=== PATIENT | female | born 1995 | race Caucasian/White ===

== ENCOUNTER 2017-05-28 21:31 | Emergency (ER) | payer OTHER ==
[2017-05-28] MEDS ORDERED: SODIUM CHLORIDE 0.9% 1,000 ML IV STA (22:09)
--- NOTE | 2017-05-28 22:31 | ED ---
Abdominal Pain HPI - General Chief Complaint: Abdominal Pain Stated Complaint: LLQ and Back pain Time Seen by Provider: 05/28/17 22:03 Source: patient Mode of arrival: ambulatory Limitations: no limitations - History of Present Illness Initial Comments: 22-year-old male patient presents to emergency department today with complaints of left upper quadrant abdominal pain that radiates around to her back. Patient states that the pain is dull and achy is there constantly, however she states that she does have episodes of more severe sharp crampy pain. Patient states that this is been going on for the last 2 days. Patient states that she does urinate frequently however this is not unusual for her. Patient states that she has had some nausea without any vomiting. Patient states that she has had chills throughout the day however denies any fever. Patient denies any cough , congestion, shortness breath, chest pain, vomiting, diarrhea, constipation, numbness, tingling, weakness, hematuria, headache, visual changes, denies any vaginal bleeding, abnormal vaginal discharge, burning, itching or any other complaints. Patient does have history of kidney infection and kidney stones however states this feels little bit different. Patient has nexplanon arm implant for control denies any chance of . - Related Data Previous Rx's Medication Instructions Recorded Tamsulosin HCl [Flomax] 0.4 mg PO DAILY #7 cap 05/28/17 Allergies Allergy/AdvReac Type Severity Reaction Status Date / Time No Known Allergies Allergy Verified 05/28/17 21:41 Review of Systems ROS Statement: Those systems with pertinent positive or pertinent negative responses have been documented in the HPI. ROS Other: All systems not noted in ROS Statement are negative. Past Medical History Past Medical History: Hypertension Additional Past Medical History / Comment(s): pih History of Any Multi-Drug Resistant Organisms: None Reported Past Surgical History: No Surgical Hx Reported Additional Past Surgical History / Comment(s): wisdom teeth Past Anesthesia/Blood Transfusion Reactions: No Reported Reaction Past Psychological History: Anxiety Smoking Status: Current every day smoker Past Alcohol Use History: None Reported Past Drug Use History: Marijuana - Past Family History Mother Family Medical History: No Reported History Father Family Medical History: COPD, Hypertension General Exam Limitations: no limitations General appearance: alert, in no apparent distress Eye exam: Present: normal appearance, PERRL, EOMI. Absent: scleral icterus, conjunctival injection, periorbital swelling ENT exam: Present: normal exam, normal oropharynx, mucous membranes moist Neck exam: Present: normal inspection. Absent: tenderness, meningismus, lymphadenopathy Respiratory exam: Present: normal lung sounds bilaterally. Absent: respiratory distress, wheezes, rales, rhonchi, stridor Cardiovascular Exam: Present: regular rate, normal rhythm, normal heart sounds. Absent: systolic murmur, diastolic murmur, rubs, gallop, clicks GI/Abdominal exam: Present: soft, tenderness (Left upper quadrant tenderness), normal bowel sounds. Absent: distended, guarding, rebound, rigid Extremities exam: Present: normal inspection, full ROM, normal capillary refill. Absent: tenderness, pedal edema, joint swelling, calf tenderness Back exam: Present: normal inspection, CVA tenderness (L). Absent: CVA tenderness (R) Neurological exam: Present: alert, oriented X3, CN II-XII intact Psychiatric exam: Present: normal affect, normal mood Skin exam: Present: warm, dry, intact, normal color. Absent: rash Course Vital Signs 05/28/17 21:39 Temperature 98.5 F Pulse Rate 86 Respiratory 18 Rate Blood Pressure 163/90 O2 Sat by Pulse 100 Oximetry Medical Decision Making - Medical Decision Making 22-year-old female patient presents to emergency department today for evaluation of left upper quadrant pain that radiates to her back. Lab work was reviewed was unremarkable. KUB was reviewed and showed overall nonobstructive bowel gas pattern and no acute intra-abdominal process. Did offer to perform computed tomography scan to rule out kidney stone as patient has had these in the past. Patient states that she was mostly concerned about infection and refuses CT scan at this time. Patient be discharged with a prescription for Flomax. She is instructed to follow-up with her primary care physician for recheck in 1-2 days. Instructed to return here immediately for any new, worsening, or concerning symptoms. Patient verbalizes understanding and agrees with this plan. - Lab Data Result diagrams: 05/28/17 22:23 05/28/17 22:23 Lab Results 05/28/17 05/28/17 05/28/17 Range/Units 22:23 22:23 22: WBC 10.8 H (3.8-10.6) k/uL RBC 4.94 (3.80-5.40) m/uL Hgb 15.8 (11.4-16.0) gm/dL Hct 47.1 H (34.0-46.0) % MCV 95.3 (80.0-100.0) fL MCH 32.0 (25.0-35.0) pg MCHC 33.6 (31.0-37.0) g/dL RDW 13.9 (11.5-15.5) % Plt Count 287 (150-450) k/uL Neutrophils % 74 % Lymphocytes % 20 % Monocytes % 4 % Eosinophils % 1 % Basophils % 1 % Neutrophils # 7.9 H (1.3-7.7) k/uL Lymphocytes # 2.2 (1.0-4.8) k/uL Monocytes # 0.4 (0-1.0) k/uL Eosinophils # 0.1 (0-0.7) k/uL Basophils # 0.1 (0-0.2) k/uL Sodium 139 (137-145) mmol/L Potassium 4.2 (3.5-5.1) mmol/L Chloride 106 (98-107) mmol/L Carbon Dioxide 24 (22-30) mmol/L Anion Gap 9 mmol/L BUN 9 (7-17) mg/dL Creatinine 0.80 (0.52-1.04) mg/dL Est GFR (MDRD) Af Amer >60 (>60 ml/min/1.73 sqM) Est GFR (MDRD) Non-Af >60 (>60 ml/min/1.73 sqM) Glucose 89 (74-99) mg/dL Calcium 10.0 (8.4-10.2) mg/dL Total Bilirubin 0.5 (0.2-1.3) mg/dL AST 19 (14-36) U/L ALT 41 (9-52) U/L Alkaline Phosphatase 56 (38-126) U/L Total Protein 7.7 (6.3-8.2) g/dL Albumin 5.0 (3.5-5.0) g/dL Amylase 48 (30-110) U/L Lipase 39 (23-300) U/L Urine Color Yellow Urine Appearance Cloudy H (Clear) Urine pH 7.0 (5.0-8.0) Ur Specific [place] 1.015 (1.001-1.035) Urine Protein Negative (Negative) Urine Glucose (UA) Negative (Negative) Urine Ketones Negative (Negative) Urine Blood Negative (Negative) Urine Nitrite Negative (Negative) Urine Bilirubin Negative (Negative) Urine Urobilinogen <2.0 (<2.0) mg/dL Ur Leukocyte Esterase Moderate H (Negative) Urine RBC 1 (0-5) /hpf Urine WBC 4 (0-5) /hpf Ur Squamous Epith Cells 7 H (0-4) /hpf Urine Bacteria Rare H (None) /hpf Urine Mucus Rare H (None) /hpf - Radiology Data Radiology results: report reviewed, image reviewed KUB reveals no evidence of bowel obstruction or pneumoperitoneum. No abnormal calcifications in the abdomen or pelvis. I'll gas pattern is unremarkable. No dilation. No radiopaque renal calculi. Unremarkable bones and joints. Impression by Dr. Joshi shows no radiographic evidence of acute abdominal disease or bowel obstruction. Disposition Clinical Impression: Left flank pain Disposition: HOME SELF-CARE Condition: Good Instructions: Flank Pain (ED) Additional Instructions: Increase fluids. Take medications as directed. Follow-up with primary care physician for recheck in 1-2 days. Return immediately for any new, worsening, or concerning symptoms. Prescriptions: Tamsulosin HCl [Flomax] 0.4 mg PO DAILY #7 cap Referrals: Yesy Sinha MD [Primary Care Provider] - 1-2 days Time of Disposition: 23:19
[2017-05-28 22:35] LABS: Basophils # (A) 0.1 k/uL (0-0.2); Basophils % (A) 1 %; CH 33.3; Eosinophils # (A) 0.1 k/uL (0-0.7); Eosinophils % (A) 1 %; HCT 47.1 % (34.0-46.0); HDW 2.24; HGB 15.8 gm/dL (11.4-16.0); Luc # (Auto) 0.12; Luc % (Auto) 1; Lymphocytes # (A) 2.2 k/uL (1.0-4.8); Lymphocytes % (A) 20 %; MCHC 33.6 g/dL (31.0-37.0); MCV 95.3 fL (80.0-100.0); Mean Platelet Volume 7.2; Monocytes # (A) 0.4 k/uL (0-1.0); Monocytes % (A) 4 %; Neutrophils # (A) 7.9 k/uL (1.3-7.7); Neutrophils % (A) 74 %; RBC 4.94 m/uL (3.80-5.40); RDW 13.9 % (11.5-15.5); WBC 10.8 k/uL (3.8-10.6); WBC (Perox) 10.49
[2017-05-28 22:47] LABS: ALT 41 U/L (9-52); AST 19 U/L (14-36); Alkaline Phosphatase 56 U/L (38-126); Amylase 48 U/L (30-110); Anion Gap 9 mmol/L; Appearance,Urine Cloudy (Clear); Bacteria,Urine Rare /hpf; Bilirubin,Urine Negative (Negative); Blood Urea Nitrogen 9 mg/dL (7-17); Carbon Dioxide 24 mmol/L (22-30); Chloride 106 mmol/L (98-107); Glucose 89 mg/dL (74-99); Glucose,Urine (UA) Negative (Negative); Ketones,Urine Negative (Negative); Leukocyte Esterase,Urine Moderate (Negative); Mucus,Urine Rare /hpf; Nitrite,Urine Negative (Negative); Non-African American GFR(MDRD) >60 (>60 ml/min/1.73 sqM); Particle Count 6365; Potassium 4.2 mmol/L (3.5-5.1); Protein,Urine Negative (Negative); RBC,Urine 1 /hpf (0-5); Sodium 139 mmol/L (137-145); Specific Gravity,Urine 1.015 (1.001-1.035); Squamous Epithelial Cell,Urine 7 /hpf (0-4); Total Bilirubin 0.5 mg/dL (0.2-1.3); Total Protein 7.7 g/dL (6.3-8.2); UA Billing (MACRO vs. MICRO) MICRO; Urobilinogen,Urine <2.0 mg/dL (<2.0); WBC,Urine 4 /hpf (0-5)
--- NOTE | 2017-05-28 23:14 | XR ---
EXAM: XR Abdomen, 1 View CLINICAL HISTORY: Reason: abdominal pain TECHNIQUE: Frontal upright view of the abdomen/pelvis. COMPARISON: 02/07/2015 FINDINGS: Intraperitoneal space: No evidence of bowel obstruction or pneumoperitoneum. No abnormal calcifications in the abdomen or pelvis. Gastrointestinal tract: Bowel gas pattern is unremarkable. No dilation. Organs: No radiopaque renal calculi. Bones/joints: Unremarkable. IMPRESSION: No radiographic evidence of acute abdominal disease or bowel obstruction.
[2017-05-28 23:30] VITALS: BP 157/92; PULSE 80; RESP 16; TEMP 98
== END 2017-05-28 23:29 | disposition home or self-care (01) ==
LOC: EC 21:31
DX: R10.12 Left upper quadrant pain (principal); M54.9 Dorsalgia, unspecified; R11.0 Nausea; R68.83 Chills (without fever); R35.0 Frequency of micturition; F17.200 Nicotine dependence, unspecified, uncomplicated; Z79.3 Long term (current) use of hormonal contraceptives
CPT/HCPCS: 36415; 74000; 80053; 81001; 82150; 83690; 85025; 96360; 99284

== ENCOUNTER → 2018-09-22 | Outpatient (CLI) | payer OTHER ==
--- NOTE | 2018-09-22 11:27 | US ---
EXAMINATION TYPE: US kidneys/renal and bladder DATE OF EXAM: 09/22/2018 COMPARISON: NONE CLINICAL HISTORY: R31.9 HEMATURIA,R10.9 FLANK PAIN. EXAM MEASUREMENTS: Right Kidney: 12.0 x 4.0 x 5.1 cm Left Kidney: 11.7 x 5.4 x 5.1 cm Right Kidney: wnl Left Kidney: wnl Bladder: wnl Bilateral Jets seen: Yes There is no evidence for hydronephrosis at this point in time. No nephrolithiasis is seen. No james s are identified. The urinary bladder is anechoic. Bilateral ureteral jets are seen. IMPRESSION: No hydronephrosis or nephrolithiasis. Kidneys are unremarkable sonographically. No urinary bladder ca lculi are seen.
== END ==
LOC: RADUSWWP 10:24
PROVIDERS: ATTEND Internal Medicine
DX: R31.9 Hematuria, unspecified (principal)
CPT/HCPCS: 76770

== ENCOUNTER 2018-10-21 12:20 | Emergency (ER) | payer OTHER ==
[2018-10-21 12:42] VITALS: BP 120/70; PULSE 68; RESP 18; TEMP 98.5
--- NOTE | 2018-10-21 12:57 | ED ---
Headache HPI - General Chief Complaint: Headache Stated Complaint: migraine Time Seen by Provider: 10/21/18 12:48 Source: patient, RN notes reviewed Mode of arrival: ambulatory Limitations: no limitations - History of Present Illness Initial Comments: 22-year-old female presents emergency Department chief complaint migraine for 5 days. Patient states she is on medications at home for migraines states that alleviate some of her symptoms but does not completely salt issue. Patient states that she's been discussed the past about having imaging because of her ongoing headaches and has not. Patient states this is a slight different than her normal headaches. Patient reports no fever, chills, neck stiffness or neck pain. Patient has no focal weakness patient does admit to some nausea and vomiting. She has some light sensitivity but no blurred vision patient denies chest pain, shortness breath, trauma. - Related Data Previous Rx's Medication Instructions Recorded Tamsulosin HCl [Flomax] 0.4 mg PO DAILY #7 cap 05/28/17 Amoxicillin/Potassium Clav 1 tab PO Q12HR #20 tab 10/21/18 [Augmentin 875-125 Tablet] Allergies Allergy/AdvReac Type Severity Reaction Status Date / Time No Known Allergies Allergy Verified 05/28/17 21:41 Review of Systems ROS Statement: Those systems with pertinent positive or pertinent negative responses have been documented in the HPI. ROS Other: All systems not noted in ROS Statement are negative. Past Medical History Past Medical History: Hypertension Additional Past Medical History / Comment(s): pih History of Any Multi-Drug Resistant Organisms: None Reported Past Surgical History: No Surgical Hx Reported Additional Past Surgical History / Comment(s): wisdom teeth Past Anesthesia/Blood Transfusion Reactions: No Reported Reaction Past Psychological History: Anxiety Smoking Status: Current every day smoker Past Alcohol Use History: None Reported Past Drug Use History: Marijuana - Past Family History Mother Family Medical History: No Reported History Father Family Medical History: COPD, Hypertension General Exam Limitations: no limitations General appearance: alert, in no apparent distress Head exam: Present: atraumatic, normocephalic, normal inspection Eye exam: Present: normal appearance, PERRL, EOMI. Absent: scleral icterus, conjunctival injection, periorbital swelling ENT exam: Present: normal exam, normal oropharynx, mucous membranes moist, TM's normal bilaterally, normal external ear exam Neck exam: Present: normal inspection, full ROM. Absent: tenderness, meningismus, lymphadenopathy Respiratory exam: Present: normal lung sounds bilaterally. Absent: respiratory distress, wheezes, rales, rhonchi, stridor, decreased breath sounds Cardiovascular Exam: Present: regular rate, normal rhythm, normal heart sounds. Absent: systolic murmur, diastolic murmur, rubs, gallop, clicks Extremities exam: Present: normal inspection, full ROM, normal capillary refill. Absent: tenderness, pedal edema, joint swelling, calf tenderness Neurological exam: Present: reflexes normal. Absent: motor sensory deficit Expanded Patient oriented to: Present: person, place, time Speech: Present: fluid speech Cranial nerves: EOM's Intact: Normal Cerebellar function: Finger to Nose: Normal, Heel to Treadwell: Normal, Romberg: Normal Motor strength exam: RUE: 5, LUE: 5, RLE: 5, LLE: 5 Eye Response: (4) open spontaneously Motor Response: (6) obeys commands Verbal Response: (5) oriented [place] Total: 15 Skin exam: Present: warm, dry, intact, normal color. Absent: rash Course Vital Signs 10/21/18 12:39 Temperature 98.5 F Pulse Rate 68 Respiratory 18 Rate Blood Pressure 120/70 O2 Sat by Pulse 100 Oximetry Medical Decision Making - Medical Decision Making 23-year-old female presents from for right-sided headache. Patient had minimal relief with medications for migraine headache and she's had in the past states that she does not want anymore medications. Patient did request having CT as she's had no prior imaging and has had this discussion the past. CT is obtained showing acute right-sided maxillary sinusitis. Patient we treated with Augmentin return parameters were discussed. Disposition Clinical Impression: Migraine, Acute sinusitis Disposition: HOME SELF-CARE Condition: Stable Instructions: Acute Headache (ED) Additional Instructions: Please return to the Emergency Department if symptoms worsen or any other concerns. Prescriptions: Amoxicillin/Potassium Clav [Augmentin 875-125 Tablet] 1 tab PO Q12HR #20 tab Is patient prescribed a controlled substance at d/c from ED?: No Referrals: Yesy Sinha MD [Primary Care Provider] - 1-2 days Time of Disposition: 13:20
--- NOTE | 2018-10-21 13:17 | CT ---
EXAMINATION TYPE: CT brain wo con DATE OF EXAM: 10/21/2018 COMPARISON: CT brain 04/18/2015 HISTORY: Migraine past [address] DLP: 1005.4 mGycm. Automated Exposure Control for Dose Reduction was Utilized. TECHNIQUE: CT scan of the head is performed without contrast. FINDINGS: There is no acute intracranial hemorrhage, mass effect, or midline shift identified. The ventricles and sulci are within normal limits in size. The globes are intact and the visualized sin uses are remarkable for air-fluid level within the right maxillary sinus, inflammatory change in the ethmoid air cells, frontal sinus. IMPRESSION: No acute intracranial hemorrhage, mass effect, or midline shift is seen. Sinus disease, correlate for acute right maxillary sinusitis
== END 2018-10-21 13:25 | disposition home or self-care (01) ==
LOC: EC 12:20
DX: G43.909 Migraine, unspecified, not intractable, without status migrainosus (principal); J01.00 Acute maxillary sinusitis, unspecified; F17.200 Nicotine dependence, unspecified, uncomplicated
CPT/HCPCS: 70450; 99283

== ENCOUNTER → 2020-10-24 | Outpatient (CLI) | payer OTHER ==
--- NOTE | 2020-10-24 14:24 | XR ---
EXAMINATION TYPE: XR KUB DATE OF EXAM: 10/24/2020 COMPARISON: 05/28/2017 INDICATION: History of kidney stones right flank pain TECHNIQUE: Single view abdomen frontal projection FINDINGS: There is a normal bowel gas pattern. Psoas margins are normal. No organomegaly is present. No suspicious calcifications are identified. A new phlebolith type calcifications at the inferior lef t pelvis IMPRESSION: 1. Unremarkable Abdomen
== END | disposition home or self-care (01) ==
LOC: RADXRMAIN 10:14
PROVIDERS: ATTEND Internal Medicine
DX: R10.9 Unspecified abdominal pain (principal)
CPT/HCPCS: 74018

== ENCOUNTER 2021-04-30 18:59 | Emergency (ER) | payer OTHER ==
[2021-04-30 19:04] VITALS: BP 138/82; PULSE 96; RESP 18; TEMP 98.3
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
--- NOTE | 2021-04-30 19:42 | XR ---
EXAMINATION TYPE: XR ribs LT w pa chest xray DATE OF EXAM: 04/30/2021 COMPARISON: 12/12/2014 HISTORY: Rib pain TECHNIQUE: 5 views FINDINGS: Heart and mediastinum are normal. The lungs are clear of infiltrate. There is no pleural ef fusion or pneumothorax. I see no rib fracture. There is intact soft tissues. IMPRESSION: Normal chest. Normal left ribs. No change.
== END 2021-04-30 20:05 | disposition home or self-care (01) ==
LOC: EC 18:59
DX: R07.81 Pleurodynia (principal); F17.200 Nicotine dependence, unspecified, uncomplicated; I10 Essential (primary) hypertension; W16.42XA Fall into unspecified water causing other injury, initial encounter; Y93.16 Activity, rowing, canoeing, kayaking, rafting and tubing
CPT/HCPCS: 99283

== ENCOUNTER → 2021-08-29 | Outpatient (CLI) | payer OTHER ==
[2021-08-29 14:33] LABS: Basophils # (A) 0.05 X 10*3/uL (0.00-0.10); Basophils % (A) 0.4 %; Eosinophils # (A) 0.07 X 10*3/uL (0.04-0.35); Eosinophils % (A) 0.5 %; HCT 42.8 % (37.2-46.3); HGB 14.4 g/dL (12.0-15.0); Lymphocytes # (A) 3.22 X 10*3/uL (0.90-5.00); Lymphocytes % (A) 23.6 %; MCH 31.5 pg (27.0-32.0); MCHC 33.6 g/dL (32.0-37.0); MCV 93.7 fL (80.0-97.0); Mean Platelet Volume 9.2 fL (9.5-12.2); Monocytes # (A) 0.61 X 10*3/uL (0.20-1.00); Monocytes % (A) 4.5 %; Neutrophils # (A) 9.65 X 10*3/uL (1.80-7.70); Neutrophils % (A) 70.6 %; Platelet Count 355 X 10*3/uL (140-440); RBC 4.57 X 10*6/uL (4.10-5.20); RDW 13.2 % (11.5-14.5); WBC 13.65 X 10*3/uL (4.50-10.00)
[2021-08-29 14:55] LABS: African American GFR (CKD) 102.3 (60.0-200.0); Albumin 5.1 g/dL (3.8-4.9); Albumin/Globulin Ratio 1.82 (1.60-3.17); Anion Gap 14.9 mmol/L (10.00-18.00); BUN/Creat Ratio 13.33 Ratio (12.00-20.00); Calcium 10.1 mg/dL (8.7-10.3); Carbon Dioxide 22.1 mmol/L (20.0-27.5); Globulin 2.8 g/dL (1.6-3.3); Non-African American GFR(CKD) 88.2 (60.0-200.0); Potassium 3.9 mmol/L (3.5-5.5); Total Bilirubin 0.4 mg/dL (0.30-1.20); Total Protein 7.9 g/dL (6.2-8.2)
[2021-08-29 14:56] LABS: T4, Free (Free Thyroxine) 1.31 ng/dL (0.800-1.800)
[2021-08-31 13:49] LABS: Hepatitis A Antibody IgM Nonreactive (Nonreactive); Hepatitis B Core IgM Nonreactive (Nonreactive); Hepatitis B Surface Antigen Nonreactive (Nonreactive); Hepatitis C IgG Antibody Nonreactive (Nonreactive)
== END | disposition home or self-care (01) ==
LOC: LABWHC1 08:54
PROVIDERS: ATTEND Physician Assistant
DX: I10 Essential (primary) hypertension (principal); R55 Syncope and collapse
CPT/HCPCS: 36415; 80053; 80074; 84439; 84443; 84481; 85025

== ENCOUNTER → 2021-08-29 | Outpatient (CLI) | payer OTHER ==
--- NOTE | 2021-08-30 10:35 | ECHOF ---
Referral Reason:I10 hypertention MEASUREMENTS -------- HEIGHT: 165.1 cm WEIGHT: 72.6 kg BP: RVIDd: 2.8 cm (< 3.3) IVSd: 1.1 cm (0.6 - 1.1) LVIDd: 4.1 cm (3.9 - 5.3) LVPWd: 1.2 cm (0.6 - 1.1) IVSs: 1.5 cm LVIDs: 2.5 cm LVPWs: 1.6 cm LAESV Index (A-L): 29.24 ml/m Ao Diam: 2.7 cm (2.0 - 3.7) AV Cusp: 2.1 cm (1.5 - 2.6) LA Diam: 4.1 cm (2.7 - 3.8) MV EXCURSION: 20.180 mm (> 18.000) MV EF SLOPE: 108 mm/s (70 - 150) EPSS: 0.4 cm MV E Kevon: 0.82 m/s MV DecT: 173 ms MV A Kevon: 0.51 m/s MV E/A Ratio: 1.61 RAP: 5.00 mmHg RVSP: 31.73 mmHg FINDINGS -------- Sinus rhythm. This was a technically adequate study. The left ventricular size is normal. There is borderline concentric left ventricular hypertrophy. Overall left ventricular systolic function is normal with, an EF between 55 - 60 %. The diastolic filling pattern is normal for the age of the patient 6.89. The right ventricle is normal in size. LA is midly dilated 29-33ml/m2. The right atrial size is normal. Interatrial and interventricular septum intact. The aortic valve is trileaflet and appears structurally normal. There is no evidence of aortic regu rgitation. There is no evidence of aortic stenosis. No mitral regurgitation. Mild tricuspid regurgitation present. There is no evidence of pulmonary hypertension. The right v entricular systolic pressure, as measured by Doppler, is 31.73mmHg. There is no pulmonic regurgitation present. The aortic root size is normal. Normal inferior vena cava with normal inspiratory collapse consistent with estimated right atrial pre ssure of 5 mmHg. There is no pericardial effusion. CONCLUSIONS -------- 1. The left ventricular size is normal. 2. There is borderline concentric left ventricular hypertrophy. 3. Overall left ventricular systolic function is normal with, an EF between 55 - 60 %. 4. The diastolic filling pattern is normal for the age of the patient 6.89 5. LA is midly dilated 29-33ml/m2. 6. Mild tricuspid regurgitation present. PAIN MANAGEMENT SPECIALIST: Ashley Ahmadi RDCS
== END | disposition home or self-care (01) ==
LOC: RADECHMAIN 14:03
PROVIDERS: ATTEND Internal Medicine
DX: I07.1 Rheumatic tricuspid insufficiency (principal)
CPT/HCPCS: 93306

== ENCOUNTER → 2022-10-24 | Outpatient (CLI) | payer OTHER ==
--- NOTE | 2022-10-24 10:38 | US ---
EXAMINATION TYPE: US kidneys/renal and bladder DATE OF EXAM: 10/24/2022 COMPARISON: CLINICAL HISTORY: R30.0 Z82.71. Patient states she has a family history of PCKD. Patient states she has a history of kidney infections and stones. EXAM MEASUREMENTS: Right Kidney: 11.1 x 4.8 x 4.2 cm Left Kidney: 11.3 x 4.6 x 4.4 cm Right Kidney: Medial anechoic lesion at hilum - 1.9 x 1.0 cm, may be an extrarenal pelvis, present pr eviously. Left Kidney: No hydronephrosis or masses seen Bladder: distended, anechoic Bilateral Jets seen IMPRESSION: 1. No suspicious renal abnormality.
== END | disposition home or self-care (01) ==
LOC: RADUSWWP 10:06
PROVIDERS: ATTEND Family Medicine
DX: R30.0 Dysuria (principal); Z82.71 Family history of polycystic kidney
CPT/HCPCS: 76770

== ENCOUNTER → 2024-03-19 | Outpatient (CLI) | payer OTHER ==
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
--- NOTE | 2024-03-21 17:59 | US ---
EXAMINATION TYPE: US thyroid st tissue head/neck DATE OF EXAM: 03/19/2024 COMPARISON: NONE CLINICAL INDICATION: Female, 29 years old with history of R22.1 MASS LUMP SWELL; Thyroid and palpable neck at anterior midline neck superior to thyroid. GLAND SIZE: Right Lobe: 4.5 x 1.7 x 1.6 cm Overall Parenchyma: homogeneous Left Lobe: 4.9 x 1.3 x 1.3 cm Overall Parenchyma: homogeneous Isthmus Thickness: 0.4 cm NODULES RIGHT: # of nodules measured on right: 0 LEFT: # of nodules measured on left: 0 ISTHMUS: # of nodules measured in the isthmus: 0 Bilateral neck scanned, no evidence of lymphadenopathy. Area of palpable scanned at anterior midline neck: No abnormality seen. IMPRESSION: 1. No discrete thyroid nodule. Next and 2. No ultrasound evidence for abnormality at the anterior midline neck.
== END | disposition home or self-care (01) ==
LOC: RADUSWWP 14:26
PROVIDERS: ATTEND Family Medicine
DX: R22.1 Localized swelling, mass and lump, neck (principal); L98.9 Disorder of the skin and subcutaneous tissue, unspecified
CPT/HCPCS: 76536; 76705

== ENCOUNTER → 2024-04-01 | Outpatient (CLI) | payer OTHER ==
[2024-04-01] MEDS: diphenhydrAMINE 50 MG/ML 1 ML VIAL IVP STA (10:35)
--- NOTE | 2024-04-01 11:27 | CT ---
EXAMINATION TYPE: CT chest w con DATE OF EXAM: 04/01/2024 COMPARISON: Old radiograph 12/12/2014 and ultrasound 03/19/2024 HISTORY: 29-year-old female M79.89 lump anterior lower Lt chest marked with BB TECHNIQUE: Contiguous axial scanning of the chest after the administration of 100 mL of Isovue 300. Coronal/sagittal reconstructions performed. CT DLP: 616mGycm. Automatic exposure control utilized for a dose reduction. FINDINGS: Palpable marker placed along the anterior thoracoabdominal junction. Underlying this area, there is s ome focal anterior protuberance of the costochondral junction. Otherwise, no discrete mass or fluid c ollection is seen. Heart normal size without pericardial effusion. Aorta normal caliber with bovine configuration to the aortic arch. No thoracic lymphadenopathy by CT size criteria. Lungs show no consolidation or pleural effusion. 1.2 cm hypodensity right hepatic dome, either a small adenoma or cyst. Breathing motion in the visual ized upper abdomen. Bones: Mild degenerative disc disease lower thoracic spine. Slight accentuated kyphosis thoracolumbar junction. IMPRESSION: There is focal hypertrophy/protuberance of the costochondral junction at the anterior left thoracoabd ominal junction underlying the palpable marker. No suspicious mass or other discrete abnormality is s een. As a precautionary measure, 6 month follow-up ultrasound can ensure a stable appearance.
== END | disposition home or self-care (01) ==
LOC: RADCTMAIN 10:06
PROVIDERS: ATTEND Family Medicine
DX: M79.89 Other specified soft tissue disorders (principal)
CPT/HCPCS: 71260; J1200; Q9967